=== PATIENT | female | born 1960 ===

== ENCOUNTER 2020-01-06 06:38 | Day surgery (SDC) | payer OTHER ==
[~2020-01-06 06:38] MED LIST: FENOFIBRATE40 MG PO; HUMALOG100 UNIT/2; LANTUS SOL100 UNIT/1; NORVASC5 MG PO
== END 2020-01-06 20:10 | disposition home or self-care (01) ==
LOC: CIR.AMB 06:38
PROVIDERS: ATTEND Orthopaedic Surgery Hand Surgery
DX: G56.01 Carpal tunnel syndrome, right upper limb (principal)